=== PATIENT | female | born 1990 | race African-American/Black ===

== ENCOUNTER 2019-08-21 13:24 | Emergency (ER) | payer OTHER ==
[2019-08-21] MEDS ORDERED: IBUPROFEN 800 MG TABLET PO ONE (16:43)
--- NOTE | 2019-08-21 16:46 | ER Document Report ---
ED General - General Chief Complaint: Drainage from Breast Stated Complaint: LEFT BREAST PAIN,DRAINAGE Time Seen by Provider: 08/21/19 14:12 Mode of Arrival: Ambulatory Information source: Patient Notes: 28-year-old female presents emergency department with abscess to the left breast. Reports started approximately 2 weeks ago. She reports pus started today with erythema and increased firmness. She reports the same thing happened in AprilMay 2019. She was in [place] at that time she did have the area drained but she does not think it was drained all the way. She denies fever vomiting diarrhea. Denies history of breast cancer. Denies family history of breast cancers. Denies history of MRSA. TRAVEL OUTSIDE OF THE [place] IN LAST 30 DAYS: No - HPI Onset: Other Onset/Duration: Persistent Quality of pain: Achy Associated symptoms: None Exacerbated by: Denies Relieved by: Denies Similar symptoms previously: Yes Recently seen / treated by doctor: No - Related Data Allergies/Adverse Reactions: No Known Allergies Allergy (Unverified 08/21/19 14:10) Past Medical History - General Information source: Patient - Social History Smoking Status: Current Every Day Smoker Chew tobacco use (# tins/day): No Frequency of alcohol use: None Drug Abuse: None Family History: None. denies: Malignancy Patient has suicidal ideation: No Patient has homicidal ideation: No - Medical History Medical History: Negative Surgical Hx: Negative Review of Systems - Review of Systems Notes: Review HPI for review of systems., All other systems negative Physical Exam - Vital signs Vitals: Temp Pulse Resp BP Pulse Ox 98.6 F 98 20 143/85 H 98 08/21/19 13:31 08/21/19 13:31 08/21/19 13:31 08/21/19 13:31 08/21/19 13:31 - Notes Notes: PHYSICAL EXAMINATION: GENERAL: Well-appearing and in no acute distress HEAD: Atraumatic, normocephalic. EYES: extraocular movements intact, sclera anicteric, conjunctiva are normal. ENT: nares patent, Moist mucous membranes. NECK: Normal range of motion, supple without lymphadenopathy LUNGS: CTAB and equal. No wheezes rales or rhonchi. HEART: Regular rate and rhythm without murmurs ABDOMEN: Soft, no tenderness. No guarding, no rebound EXTREMITIES: Normal range of motion, NEUROLOGICAL: Cranial nerves grossly intact. PSYCH: Normal mood, normal affect. - Skin Skin Temperature: Warm Skin Moisture: Dry Skin irregularity: Abscess, Erythema Location of irregularity: Other - LEFT BREAST AROUND NIPPLE AND EXTENDING OUT Course - Re-evaluation Re-evalutation: 08/21/19 18:33 28-year-old female presents with an abscess to her left breast. Reports started proximally 2 weeks ago. Also reports she had 1 back in April when she lived in [place] and had a drain there. Patient reports tenderness for the past 2 weeks today the area turned red firm and she had drainage. 08/21/19 19:02 US shows abscess, dr gilmore consulted. dr gilmore here in the ED to complete I&D 08/21/19 20:10 Dr. lake finished I&D of the left breast. He is requesting patient be discharged with [facility] for the pain. Follow-up in his office next week. Patient was instructed on this. She verbalized understanding to all instructions. Chest Ultrasound 08/21/19 16:43 IMPRESSION: In the left breast at the 5 o'clock position in the periareolar region there is a subcutaneous 3.7 x 3.6 x 1.3 cm thickness fluid collection suggesting abscess. - Vital Signs Vital signs: Temp Pulse Resp BP Pulse Ox 98.6 F 98 20 143/85 H 98 08/21/19 13:31 08/21/19 13:31 08/21/19 13:31 08/21/19 13:31 08/21/19 13:31 - Diagnostic Test Radiology reviewed: Image reviewed, Reports reviewed - Consults dr gilmore Time consulted: 18:33 Reason for consultation: 08/21/19 18:33 breast abscess Consulted provider: will come to ER Discharge - Discharge Clinical Impression: Breast abscess Condition: Stable Disposition: HOME, SELF-CARE Instructions: Abscess ([facility]), Oral Narcotic Medication ([facility]), Post Incision and Drainage, Trimethoprim-Sulfa ([facility]) Additional Instructions: *You have been treated for an abscess with incision and drainage *Take medication as prescribed *Monitor the site for signs of increasing infection such as increasing pain, redness, swelling, warmth, fever *Follow up with Dr Gilmore next week. Call for an appointment *Return to ED for signs of increasing infection, worsening condition, changes, needs Monitor your blood pressure. Your blood pressure was elevated today. This may be because you were anxious, in pain or because you need medication. It is important to follow up with your primary care provider for full evaluation. Prescriptions: Sulfamethoxazole/Trimethoprim [Bactrim Ds Tablet] 1 each PO BID #20 tablet Forms: Elevated Blood Pressure
--- NOTE | 2019-08-21 18:13 | RADIOLOGY REPORT (SQ) ---
EXAM DESCRIPTION: U/S CHEST COMPLETED DATE/TIME: 08/21/2019 5:57 pm REASON FOR STUDY: ABSCESS LEFT BREAST COMPARISON: None. TECHNIQUE: Dynamic and static grayscale images acquired of the localized site of clinical concern an d recorded on PACS. Additional selected color Doppler and spectral images recorded. SITE OF CONCERN: Left breast LIMITATIONS: None. FINDINGS: In the left breast at the 5 o'clock position in the periareolar region there is a subcutan eous 3.7 x 3.6 x 1.3 cm thickness fluid collection suggesting abscess. OTHER: No other significant finding. IMPRESSION: In the left breast at the 5 o'clock position in the periareolar region there is a subcut aneous 3.7 x 3.6 x 1.3 cm thickness fluid collection suggesting abscess. TECHNICAL DOCUMENTATION: JOB ID: [id number] [id number] 2010 [employer]- All Rights Reserved Reading location - IP/workstation name: [email or web address]
[2019-08-21] MEDS ORDERED: ACETAMINOPHEN 325 MG TABLET PO ONE (18:32)
[2019-08-21] MEDS ORDERED: MORPHINE SULFATE 10 MG/ML INJ IV ONE (19:05)
[2019-08-21] MEDS ORDERED: LIDOCAINE 1%/EPINEPHRINE INJ 20 ML VIAL INJ ONE (19:05)
[2019-08-21] MEDS ORDERED: HYDROCODONE/ACETAMINOPHEN 5-325 MG (6 TAB/ER DISP) PO PRN (20:15)
[2019-08-21] MEDS ORDERED: SULFAMETHOXAZOLE/TRIMETHOPRIM 800-160 MG TABLET PO ONE (20:15)
[2019-08-21 20:34] VITALS: BP 126/72
--- NOTE | 2019-08-21 21:22 | PDOC CONSULTATION ---
Consultation Consult Date: 08/21/19 Provider Consulted: JACKIE HARDIN Consult reason:: left breast abscess History of Present Illness History of Present Illness: ASHLEY JOHNSON is a 28 year old female seen in consultation at the request of the emergency department physician. This is a patient with a history of a breast abscess 3 to 4 months ago. She is a smoker. She has nipple piercings (that she currently does not wear). Patient reports increasing swelling and pain in the left breast approximately 3 months ago. She had aspiration performed in the ER, and was given antibiotics. This resolved her symptoms. She has had recurrence of her symptoms over the last 4 to 5 days. Her pain is sharp and stabbing. She reports it is 10 out of 10. There is increasing swelling, pain, tenderness, and now purulent drainage from the nipple. The patient reports that it is "in the same spot as last time". She reports fevers and chills. She denies nausea, vomiting, headache, chest pain, shortness of breath, orthostasis, dizziness, blurry vision, sore throat, fatigue, or malaise. Past Medical History Medical History: None Past Surgical History Past Surgical History: Reports: Other - Aspiration of the left breast abscess Social History Smoking Status: Current Every Day Smoker Electronic Cigarette use?: No Frequency of Alcohol Use: Occasional Hx Recreational Drug Use: No Hx Prescription Drug Abuse: No Family History Family History: Reviewed & Not Pertinent. denies: Malignancy Parental Family History Reviewed: Yes Children Family History Reviewed: Yes Sibling(s) Family History Reviewed.: Yes Medication/Allergy Home Medications: Sulfamethoxazole/Trimethoprim [Bactrim Ds Tablet] 1 each PO BID #20 tablet 08/21/19 Allergies/Adverse Reactions: No Known Allergies Allergy (Unverified 08/21/19 14:10) Review of Systems Constitutional: ABSENT: anorexia, chills, fatigue, fever(s) Eyes: ABSENT: visual disturbances Ears: ABSENT: hearing changes Nose, Mouth, and Throat: ABSENT: sore throat Cardiovascular: ABSENT: chest pain Respiratory: ABSENT: cough Gastrointestinal: ABSENT: abdominal pain Genitourinary: ABSENT: dysuria Musculoskeletal: ABSENT: back pain Integumentary: PRESENT: other - Pain and swelling in the left breast, beneath the nipple. Psychiatric: ABSENT: anxiety, depression Endocrine: ABSENT: cold intolerance, heat intolerance Hematologic/Lymphatic: ABSENT: easy bleeding, easy bruising Physical Exam Vital Signs: Temp Pulse Resp BP Pulse Ox 98.6 F 98 20 143/85 H 98 08/21/19 13:31 08/21/19 13:31 08/21/19 13:31 08/21/19 13:31 08/21/19 13:31 Intake & Output 08/20/19 08/21/19 08/22/19 06:59 06:59 06:59 Weight 78.6 kg General appearance: PRESENT: no acute distress, cooperative Head exam: PRESENT: atraumatic, normocephalic Eye exam: PRESENT: EOMI, PERRLA. ABSENT: scleral icterus Mouth exam: PRESENT: moist, neck supple Neck exam: ABSENT: meningismus, tenderness, thyromegaly, tracheal deviation Respiratory exam: PRESENT: unlabored. ABSENT: chest wall tenderness, tachypnea, wheezes Cardiovascular exam: ABSENT: tachycardia Breast: PRESENT: Tenderness - Left nipple, Mass/Lump - Indurated area beneath the left nipple, at the 10 o'clock position, Drainage - From the left nipple, seropurulent GI/Abdominal exam: PRESENT: soft. ABSENT: rebound, rigid, tenderness Rectal exam: PRESENT: deferred Extremities exam: ABSENT: clubbing Musculoskeletal exam: ABSENT: deformity Neurological exam: PRESENT: alert, awake, oriented to person, oriented to place, oriented to time, oriented to situation, CN II-XII grossly intact. ABSENT: motor sensory deficit Psychiatric exam: ABSENT: agitated, anxious, depressed Focused psych exam: ABSENT: delusional Skin exam: ABSENT: cyanosis, erythema, jaundice Results Impressions: Chest Ultrasound 08/21/19 16:43 IMPRESSION: In the left breast at the 5 o'clock position in the periareolar region there is a subcutaneous 3.7 x 3.6 x 1.3 cm thickness fluid collection suggesting abscess. Assessment & Plan - Diagnosis (1) Breast abscess Is this a current diagnosis for this admission?: Yes - Plan Summary Plan Summary: This is a 28-year-old female with a recurrent breast abscess. The patient currently is a smoker and has a history of nipple piercings. She has an indurated area on the left breast, beneath the nipple areolar complex. I have reviewed her ultrasound. It shows a small fluid collection in this area. I recommended incision and drainage of the breast abscess under local anesthesia at the bedside. The patient has agreed to this. Risks/benefits discussed, informed consent obtained, and all questions answered. I will prescribe her a small amount of hydrocodone as well as Bactrim DS 2 tabs p.o. twice daily. I will see her in my office in 5 to 7 days for a follow-up. I have also recommended that she stop smoking completely for expedited healing and also general breast health.
--- NOTE | 2019-08-21 21:25 | Operative Report ---
Nonrecallable Operative Report DATE OF SURGERY: 08/21/19 PREOPERATIVE DIAGNOSIS: Left breast abscess POSTOPERATIVE DIAGNOSIS: Same as above OPERATION: Incision and drainage of left breast abscess SURGEON: JACKIE HARDIN ANESTHESIA: Local TISSUE REMOVED OR ALTERED: Wound culture COMPLICATIONS: None apparent ESTIMATED BLOOD LOSS: Minimal PROCEDURE: Drains/implants: 4 x 4 gauze. Procedure in detail: After informed consent was obtained, the patient was brought to the operating room and laid in the supine position. The area of the left breast was prepped and draped in a normal sterile fashion. 1% lidocaine was used to anesthetize the skin of the left breast. A curvilinear incision was created in approximately the 10 o'clock position, at the area of maximal induration and erythema (at the border of the nipple areolar complex). Dissection was carried through the subcutaneous tissues using sharp and blunt d issection. A moderate amount of seropurulent material was identified. The abscess cavity was drained completely, and packed with gauze. A dressing was then placed, and the procedure was concluded. All sponge, instrument, and needle counts were correct. Condition: Stable.
== END 2019-08-21 20:38 | disposition home or self-care (01) ==
LOC: ER 13:24
DX: N61.1 Abscess of the breast and nipple (principal); N64.4 Mastodynia
CPT/HCPCS: 10060; 99284; 87070; 87205; 87075; 76604; J3490; J2270

== ENCOUNTER 2019-12-29 15:16 | Emergency (ER) | payer OTHER ==
--- NOTE | 2019-12-29 15:46 | ER Document Report ---
ED Medical Screen (RME) - General Chief Complaint: Psych Problem Stated Complaint: IVC W/PAPERS Time Seen by Provider: 12/29/19 15:20 Mode of Arrival: Ambulatory Information source: Patient, Law Enforcement Notes: HPI; 29-year-old female who denies any previous medical issues denies any previous mental health issues. Arrives to the emergency room with HARJE[facility] after having IVC papers by [employer] this morning. Patient states her sisters called [employer] as she seemed more depressed than normal. Patient denies any destructive behavior. She denies any suicidal homicidal ideation. PE: Alert and oriented x3. No acute distress noted. Cooperative, answers questions appropriately. I have greeted and performed a rapid initial assessment of this patient. A comprehensive ED assessment and evaluation of the patient, analysis of test results and completion of the medical decision making process will be conducted by additional ED providers. I have specifically instructed the patient or family members with the patient to immediately return to any nursing staff should anything change in the patient's condition or with their chief complaint. TRAVEL OUTSIDE OF THE [place] IN LAST 30 DAYS: No - Related Data Allergies/Adverse Reactions: No Known Allergies Allergy (Verified 12/29/19 15:37) Past Medical History Past Surgical History: Reports: Other - Aspiration of the left breast abscess Physical Exam - Vital signs Vitals: Temp Pulse Resp BP Pulse Ox 98.8 F 101 H 16 139/84 H 98 12/29/19 15:20 12/29/19 15:20 12/29/19 15:20 12/29/19 15:20 12/29/19 15:20 Course - Vital Signs Vital signs: Temp Pulse Resp BP Pulse Ox 98.8 F 101 H 16 139/84 H 98 12/29/19 15:20 12/29/19 15:20 12/29/19 15:20 12/29/19 15:20 12/29/19 15:20
[2019-12-29 16:44] LABS: ABSOLUTE EOSINOPHILS # (AUTO) 0.1 10^3/uL (0.0-0.6); ABSOLUTE LYMPHOCYTES (AUTO) 1.5 10^3/uL (0.5-4.7); ABSOLUTE MONOCYTES (AUTO) 0.5 10^3/uL (0.1-1.4); ABSOLUTE NEUT (AUTO) 4.9 10^3/uL (1.7-8.2); BASOPHILS % (AUTO) 0.6 % (0-2); HEMATOCRIT 35.4 % (36.0-47.0); HEMOGLOBIN 12.1 g/dL (12.0-15.5); LYMPHOCYTES % (AUTO) 21.6 % (13-45); MEAN CORPUSCULAR HEMOGLOBIN 27.4 pg (27.0-33.4); MEAN CORPUSCULAR HGB CONC 34.2 g/dL (32.0-36.0); MEAN CORPUSCULAR VOLUME 80 fl (80-97); MONOCYTES % (AUTO) 7.1 % (3-13); PLATELET COUNT 360 10^3/uL (150-450); RED BLOOD COUNT 4.41 10^6/uL (3.72-5.28); RED CELL DISTRIBUTION WIDTH 15.8 % (11.5-14.0); SEGMENTED NEUTROPHILS % (AUTO) 69.7 % (42-78); TOTAL CELLS COUNTED % (AUTO) 100 %
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
[2019-12-29 17:10] LABS: ALBUMIN 4.6 g/dL (3.5-5.0); ALKALINE PHOSPHATASE 83 U/L (38-126); ANION GAP 8 (5-19); ASPARTATE AMINO TRANSFERASE 22 U/L (14-36); BILIRUBIN,TOTAL 0.6 mg/dL (0.2-1.3); BLOOD UREA NITROGEN 9 mg/dL (7-20); CALCIUM 9.9 mg/dL (8.4-10.2); CARBON DIOXIDE 28 mmol/L (22-30); CHLORIDE 105 mmol/L (98-107); GLUCOSE 109 mg/dL (75-110); POTASSIUM 3.6 mmol/L (3.6-5.0); TOTAL PROTEIN 7.9 g/dL (6.3-8.2)
[2019-12-29 17:12] LABS: ACETAMINOPHEN < 10 ug/mL (10-30); ALCOHOL < 10 mg/dL (NONE DETECTED); SALICYLATE < 1.0 mg/dL (2.0-20.0)
[2019-12-29 18:30] LABS: URINE AMPHETAMINES SCREEN NEGATIVE; URINE BARBITURATES SCREEN NEGATIVE; URINE BENZODIAZEPINES SCREEN NEGATIVE; URINE COCAINE SCREEN NEGATIVE; URINE METHADONE SCREEN NEGATIVE; URINE PHENCYCLIDINE SCREEN NEGATIVE
[2019-12-29 18:36] LABS: URINE MARIJUANA (THC) SCREEN UNCONFIRMED POSITIVE
[2019-12-29 18:55] LABS: APPEARANCE,URINE SLIGHTLY-CLOUDY; BILIRUBIN,URINE NEGATIVE (NEGATIVE); COLOR,URINE YELLOW; GLUCOSE, URINE NEGATIVE (NEGATIVE); KETONES,URINE NEGATIVE (NEGATIVE); LEUKOCYTE ESTERASE,URINE NEGATIVE (NEGATIVE); NITRITE,URINE NEGATIVE (NEGATIVE); PROTEIN,URINE NEGATIVE (NEGATIVE)
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
[2019-12-29] MEDS: BENZTROPINE MESYLATE 1 MG TABLET PO SCH (19:27)
[2019-12-29] MEDS: HALOPERIDOL 5 MG TABLET PO SCH (19:27)
--- NOTE | 2019-12-29 23:36 | EKG REPORT ---
SEVERITY:- NORMAL ECG - SINUS RHYTHM : Confirmed by: Zarina Amor 29-Dec-2019 23:36:15
[2019-12-30] MEDS: HALOPERIDOL 5 MG TABLET PO SCH (10:35)
[2019-12-30] MEDS: BENZTROPINE MESYLATE 1 MG TABLET PO SCH (10:35)
[2019-12-30 16:34] VITALS: BP 117/64
== END 2019-12-30 17:11 ==
LOC: ER 15:16
DX: F39 Unspecified mood [affective] disorder (principal); F32.9 Major depressive disorder, single episode, unspecified; F91.9 Conduct disorder, unspecified; F17.200 Nicotine dependence, unspecified, uncomplicated
CPT/HCPCS: 36415; 80053; 80307; 81001; 84703; 85025; 93005; 93010; 99285

== ENCOUNTER 2020-01-23 17:56 | Emergency (ER) | payer SELFPAY ==
[2020-01-23 18:02] VITALS: BP 116/74
--- NOTE | 2020-01-23 18:17 | ER Document Report ---
ED Medical Screen (RME) - General Chief Complaint: Psych Problem Stated Complaint: PSYCH Time Seen by Provider: 01/23/20 18:12 Mode of Arrival: Ambulatory Information source: Patient Notes: Patient presents with [facility] deputy in [facility]. Patient with IVC paperwork due to the fact that patient has been hearing voices. Patient has reported history of bipolar disorder. Patient denies any suicidal or homicidal ideation. Paperwork states that patient has not been taking her medication. I have greeted and performed a rapid initial assessment of this patient. A comprehensive ED assessment and evaluation of the patient, analysis of test results and completion of the medical decision making process will be conducted by additional ED providers. TRAVEL OUTSIDE OF THE [place] IN LAST 30 DAYS: No - Related Data Allergies/Adverse Reactions: No Known Allergies Allergy (Verified 01/23/20 18:03) Past Medical History - Social History Chew tobacco use (# tins/day): No Frequency of alcohol use: None Drug Abuse: None Past Surgical History: Reports: Hx Breast Surgery, Other - Aspiration of the left breast abscess Physical Exam - Vital signs Vitals: Temp Pulse Resp BP Pulse Ox 99.1 F 90 18 116/74 97 01/23/20 18:01 01/23/20 18:01 01/23/20 18:01 01/23/20 18:01 01/23/20 18:01 - General General appearance: Appears well, Alert In distress: None - Psychological Associated symptoms: Normal mood. No: Uncooperative Course - Vital Signs Vital signs: Temp Pulse Resp BP Pulse Ox 99.1 F 90 18 116/74 97 01/23/20 18:01 01/23/20 18:01 01/23/20 18:01 01/23/20 18:01 01/23/20 18:01
--- NOTE | 2020-01-23 18:41 | EKG REPORT ---
SEVERITY:- NORMAL ECG - SINUS RHYTHM : Confirmed by: Zarina Amor 23-Jan-2020 18:40:25
[2020-01-23 19:20] LABS: ABSOLUTE EOSINOPHILS # (AUTO) 0.1 10^3/uL (0.0-0.6); ABSOLUTE LYMPHOCYTES (AUTO) 2.1 10^3/uL (0.5-4.7); ABSOLUTE MONOCYTES (AUTO) 0.6 10^3/uL (0.1-1.4); ABSOLUTE NEUT (AUTO) 6.5 10^3/uL (1.7-8.2); BASOPHILS % (AUTO) 0.3 % (0-2); EOSINOPHILS % (AUTO) 0.8 % (0-6); HEMATOCRIT 36.8 % (36.0-47.0); HEMOGLOBIN 12.2 g/dL (12.0-15.5); MEAN CORPUSCULAR HEMOGLOBIN 26.9 pg (27.0-33.4); MEAN CORPUSCULAR HGB CONC 33.3 g/dL (32.0-36.0); MEAN CORPUSCULAR VOLUME 81 fl (80-97); MONOCYTES % (AUTO) 6.6 % (3-13); PLATELET COUNT 373 10^3/uL (150-450); RED BLOOD COUNT 4.55 10^6/uL (3.72-5.28); RED CELL DISTRIBUTION WIDTH 16.2 % (11.5-14.0); SEGMENTED NEUTROPHILS % (AUTO) 70.3 % (42-78); TOTAL CELLS COUNTED % (AUTO) 100 %; WHITE BLOOD COUNT 9.3 10^3/uL (4.0-10.5)
[2020-01-23 19:46] LABS: ALBUMIN 4.4 g/dL (3.5-5.0); ALKALINE PHOSPHATASE 100 U/L (38-126); ANION GAP 7 (5-19); ASPARTATE AMINO TRANSFERASE 24 U/L (14-36); BILIRUBIN,TOTAL 0.5 mg/dL (0.2-1.3); BLOOD UREA NITROGEN 10 mg/dL (7-20); CALCIUM 9.5 mg/dL (8.4-10.2); CARBON DIOXIDE 28 mmol/L (22-30); CHLORIDE 106 mmol/L (98-107); GLUCOSE 100 mg/dL (75-110); TOTAL PROTEIN 7.9 g/dL (6.3-8.2)
[2020-01-23 19:47] LABS: ACETAMINOPHEN < 10 ug/mL (10-30); ALCOHOL < 10 mg/dL (NONE DETECTED); SALICYLATE < 1.0 mg/dL (2.0-20.0)
--- NOTE | 2020-01-23 21:16 | ER Document Report ---
ED General <BILLY MARTINEZ - Last Filed: 01/23/20 22:28> - General Mode of Arrival: Ambulatory TRAVEL OUTSIDE OF THE [place] IN LAST 30 DAYS: No - Related Data Home Medications: Patient claims to be on Zyprexa, unknown dose <DERICK ROCK - Last Filed: 01/23/20 23:23> - General Chief Complaint: Psych Problem Stated Complaint: PSYCH Time Seen by Provider: 01/23/20 18:12 - HPI Notes: Patient is a 29-year-old female who presents to the emergency department for evaluation. Evidently her girlfriend filled out IVC paperwork. Paperwork alleged she was hearing voices. The patient states that she is not hearing voices. She states to me that she has been taking Zyprexa, she believes the d ose is too high, and it makes her drowsy. She states that is why she is very tired. She denies any visual or auditory hallucination. No suicidal or homicidal ideation. She states she was diagnosed with a mood disorder, and goes to [place] for therapy. (DERICK ROCK) - Related Data Allergies/Adverse Reactions: No Known Allergies Allergy (Verified 01/23/20 18:03) Past Medical History - General Information source: Patient - Social History Smoking Status: Current Every Day Smoker Chew tobacco use (# tins/day): No Frequency of alcohol use: None Drug Abuse: Marijuana Family History: Reviewed & Not Pertinent. denies: Malignancy Psychiatric Medical History: Reports: Other - Patient reports mood disorder Past Surgical History: Reports: Hx Breast Surgery, Other - Aspiration of the left breast abscess <DERICK ROCK - Last Filed: 01/23/20 23:23> Review of Systems - Review of Systems Constitutional: See HPI -: Yes All other systems reviewed and negative <DERICK ROCK - Last Filed: 01/23/20 23:23> Physical Exam <DERICK ROCK - Last Filed: 01/23/20 23:23> - Vital signs Vitals: Temp Pulse Resp BP Pulse Ox 99.1 F 90 18 116/74 97 01/23/20 18:01 01/23/20 18:01 01/23/20 18:01 01/23/20 18:01 01/23/20 18:01 - Notes Notes: This is a 29-year-old female who appears her stated age, no acute distress. She appears drowsy, but arouses easily to verbal stimuli. Vital signs reviewed, please refer to chart. Head is normocephalic, atraumatic. Pupils equal round, reactive to light. Neck is supple without meningismus. Heart is regular rate and rhythm. Lungs are clear to auscultation bilaterally. Abdomen is soft, nontender, normoactive bowel sounds throughout. Extremities without cyanosis, clubbing. Posterior calves are nontender. Peripheral pulses are equal. Skin is warm and dry. Patient is drowsy but arousable. No focal neurological deficits noted. She makes good eye contact, does not appear to be reacting to internal stimuli. (DERICK ROCK) Course - Laboratory Result Diagrams: 01/23/20 18:52 01/23/20 18:52 <BILLY MARTINEZ - Last Filed: 01/23/20 22:28> - Laboratory Result Diagrams: 01/23/20 18:52 01/23/20 18:52 <DERICK ROCK - Last Filed: 01/23/20 23:23> - Re-evaluation Re-evalutation: 01/23/20 21:13 Patient presents to the emergency department for evaluation. She was under IVC is followed by her girlfriend. She was evaluated by Dr. Martinez here. The patient has not filled any prescriptions for Zyprexa in our system. She does, however, have significant legal charges pending against her. She does not have any medical issues as of yet identified, still awaiting urinalysis. From a medical standpoint she is cleared. She denies any urinary symptoms. There is some concern over secondary gain with this patient. Again she does not appear to be reacting to any sort of internal stimuli, certainly not exhibiting significant signs of hallucination. She is not suicidal nor she homicidal. Awaiting EKG to evaluate for any abnormalities, pending normal EKG the patient is medically cleared. 01/23/20 23:22 EKG unremarkable. Patient will be discharged. (DERICK ROCK) - Vital Signs Vital signs: Temp Pulse Resp BP Pulse Ox 99.1 F 90 18 116/74 97 01/23/20 18:01 01/23/20 18:01 01/23/20 18:01 01/23/20 18:01 01/23/20 18:01 - Laboratory Laboratory results interpreted by me: 01/23/20 01/23/20 01/23/20 18:52 18:52 21:52 MCH 26.9 L RDW 16.2 H ALT 44 H Urine Ketones TRACE H Urine Urobilinogen 2.0 H Ur Leukocyte Esterase TRACE H Urine Ascorbic Acid 40 H Salicylates < 1.0 L Acetaminophen < 10 L - EKG Interpretation by Me Additional EKG results interpreted by me: 01/23/20 23:23 Sinus mechanism with a rate of 95 bpm. Normal axis and intervals. No acute ST changes concerning for ischemia or infarction. (DERICK ROCK) Discharge <BILLY MARTINEZ - Last Filed: 01/23/20 22:28> <DERICK ROCK - Last Filed: 01/23/20 23:23> - Discharge Clinical Impression: Malingering Condition: Good Disposition: HOME, SELF-CARE Additional Instructions: You were evaluated and assessed by both the medical and behavioral health teams of [facility] and are now deemed appropriate for discharge. You presented for medication non-compliance and reported auditory/visual hallucinations. Upon further evaluation of your presentation, it was found you are devoid of the reported symptoms and are in fact, lucid, clear in thought, speech, and comprehension. Information provided by you was inaccurate and when confronted with such information, you agreed it was false. You are asked to only return to [facility] should you be experiencing a true medical or behavioral health emergency requiring immediate intervention by medical and behavioral health experts.
[2020-01-23 22:07] LABS: APPEARANCE,URINE SLIGHTLY-CLOUDY; BILIRUBIN,URINE NEGATIVE (NEGATIVE); COLOR,URINE YELLOW; GLUCOSE, URINE NEGATIVE (NEGATIVE); KETONES,URINE TRACE mg/dL (NEGATIVE); LEUKOCYTE ESTERASE,URINE TRACE (NEGATIVE); NITRITE,URINE NEGATIVE (NEGATIVE); PROTEIN,URINE NEGATIVE (NEGATIVE); URINE SPECIFIC GRAVITY 1.023
[2020-01-23 22:19] LABS: URINE AMPHETAMINES SCREEN NEGATIVE; URINE BARBITURATES SCREEN NEGATIVE; URINE BENZODIAZEPINES SCREEN NEGATIVE; URINE COCAINE SCREEN NEGATIVE; URINE MARIJUANA (THC) SCREEN UNCONFIRMED POSITIVE; URINE METHADONE SCREEN NEGATIVE; URINE PHENCYCLIDINE SCREEN NEGATIVE
== END 2020-01-23 23:35 | disposition home or self-care (01) ==
LOC: ER 17:56
DX: Z76.5 Malingerer [conscious simulation] (principal); R44.0 Auditory hallucinations; F31.9 Bipolar disorder, unspecified; F17.200 Nicotine dependence, unspecified, uncomplicated
CPT/HCPCS: 36415; 80053; 80307; 81001; 84703; 85025; 93005; 93010; 99284